=== PATIENT | female | born 1990 | race Caucasian/White ===

== ENCOUNTER 2017-12-05 15:02 | Emergency (ER) | payer BC ==
[2012-07-25 09:15] VITALS: BMI 20.8
== END 2017-12-05 15:34 | disposition left against medical advice (07) ==
LOC: D.ER 15:02
DX: R07.81 Pleurodynia (principal)

== ENCOUNTER 2017-12-06 12:33 | Emergency (ER) | payer SELFPAY ==
[2012-07-25 09:15] VITALS: BMI 20.8
[2017-12-06 14:38] LABS: HCG URINE NEGATIVE (NEGATIVE)
[2017-12-06 15:11] LABS: APPEARANCE CLEAR (CLEAR); BILIRUBIN NEGATIVE (NEGATIVE); COLOR YELLOW (YELLOW); GLUCOSE NEGATIVE (NEGATIVE); KETONE NEGATIVE (NEGATIVE); NITRITE NEGATIVE (NEGATIVE); PROTEIN TRACE mg/dL (NEGATIVE); UROBILINOGEN NORMAL (NORMAL)
[2017-12-06 15:13] LABS: BACTERIA MANY /hpf (NONE SEEN); EPITHELIAL CELLS 0-5 /hpf (0-5); RED CELLS - URINE 0-5 /hpf (0-5)
== END 2017-12-06 18:28 | disposition home or self-care (01) ==
LOC: D.ER 12:33
PROVIDERS: Emergency Medicine; Nurse Practitioner Family
DX: N10 Acute pyelonephritis (principal)

== ENCOUNTER 2018-06-08 22:13 | Emergency (ER) | payer SELFPAY ==
[~2018-06-08] VITALS: Ht 172.7 cm; Wt 72.7 kg
[2018-06-08 22:47] VITALS: BP 136/79; Ht 172.7 cm; Wt 72.7 kg
[2018-06-08 23:20] LABS: BASOPHILS 0.5 % (0-2); EOSINOPHILS 2.5 % (0-7); HEMATOCRIT 39.9 % (36.0-48.0); HEMOGLOBIN 13.5 g/dL (12-16); IMMATURE GRANULOCYTES 0.2 % (0-5); LYMPHOCYTES 25.2 % (15-50); MCH 28.9 pg (26.0-34.0); MCHC 33.8 g/dL (31.0-37.0); MCV 85.4 fL (80.0-100.0); MEAN PLATELET VOLUME 9.2 fL (7.4-10.4); MONOCYTES 5.7 % (2-11); NEUTROPHILS 65.9 % (40-80); RBC 4.67 10x6/uL (4.00-5.40); RDW 13.6 % (11.5-14.5); WBC 10.2 10x3/uL (4.8-10.8)
[2018-06-08 23:25] LABS: HCG SERUM NEGATIVE (NEGATIVE); PLATELET COUNT 317 10x3/uL (130-400)
[2018-06-08 23:43] LABS: ALBUMIN 3.7 g/dL (3.4-5.0); ALKALINE PHOSPHATASE 64 U/L (46-116); ALT (SGPT) 13 U/L (10-68); AMYLASE - SERUM 85 U/L (25-115); BILIRUBIN - TOTAL 0.32 mg/dL (0.2-1.3); CALC OSMOLALITY 260 mosm/kg (275-300); CALCIUM 8.8 mg/dL (8.5-10.1); CHLORIDE - SERUM 103 mmol/L (98-107); CREATININE - SERUM 0.6 mg/dL (0.6-1.3); GLUCOSE 86 mg/dL (74-106); LIPASE 234 U/L (73-393); POTASSIUM - SERUM 4.1 mmol/L (3.5-5.1); PROTEIN - SERUM 7.9 g/dL (6.4-8.2); SODIUM 131 mmol/L (136-145); UREA NITROGEN 9 mg/dL (7-18); eGFR NON AFRICAN AMERICAN > 90 mL/min (90-120)
== END 2018-06-09 00:42 | disposition left against medical advice (07) ==
LOC: D.ER 22:13
PROVIDERS: Family Medicine
DX: R10.9 Unspecified abdominal pain (principal)

== ENCOUNTER 2018-10-06 05:35 | Emergency (ER) | payer SELFPAY ==
[~2018-10-06] VITALS: Ht 172.7 cm; Wt 70.5 kg
[2018-10-06 05:47] VITALS: Ht 172.7 cm; Wt 70.5 kg
[2018-10-06] MEDS ORDERED: ZOFRAN ODT4 MG/UDTAB PO (06:02)
[2018-10-06] MEDS ORDERED: TAMIFLU75 MG PO (06:02)
[2018-10-06 06:35] VITALS: BP 121/70
== END 2018-10-06 06:36 | disposition home or self-care (01) ==
LOC: D.ER 05:35
DX: J02.9 Acute pharyngitis, unspecified (principal); R50.9 Fever, unspecified

== ENCOUNTER 2019-07-09 19:54 | Emergency (ER) | payer MEDICAID ==
[~2019-07-09] VITALS: Ht 172.7 cm; Wt 68.2 kg
[~2019-07-09 19:54] MED LIST: TAMIFLU75 MG PO; TORADOL10 MG PO; ZOFRAN ODT4 MG/UDTAB PO; ZOFRAN8 MG PO
[2019-07-09 20:03] VITALS: Ht 172.7 cm; Wt 68.2 kg
[2019-07-09 21:05] LABS: APPEARANCE TURBID (CLEAR); COLOR YELLOW (YELLOW)
[2019-07-09 21:06] LABS: BILIRUBIN NEGATIVE (NEGATIVE); GLUCOSE NEGATIVE (NEGATIVE); KETONE NEGATIVE (NEGATIVE); NITRITE NEGATIVE (NEGATIVE); PROTEIN NEGATIVE (NEGATIVE); UROBILINOGEN NORMAL (NORMAL)
[2019-07-09 21:07] LABS: BACTERIA MODERATE /hpf (NONE SEEN); MUCUS <1+ /lpf (NONE SEEN); WHITE CELLS - URINE 0-5 /hpf (0-5)
[2019-07-09 21:15] LABS: BASOPHILS 2.8 % (0-2); EOSINOPHILS 1.7 % (0-7); HEMATOCRIT 38.1 % (36.0-48.0); HEMOGLOBIN 12.8 g/dL (12-16); IMMATURE GRANULOCYTES 0.1 % (0-5); LYMPHOCYTES 37.2 % (15-50); MCH 28.8 pg (26.0-34.0); MCHC 33.6 g/dL (31.0-37.0); MCV 85.8 fL (80.0-100.0); MONOCYTES 7.7 % (2-11); NEUTROPHILS 50.5 % (40-80); PLATELET COUNT 291 10x3/uL (130-400); RBC 4.44 10x6/uL (4.00-5.40); RDW 12.7 % (11.5-14.5); WBC 6.9 10x3/uL (4.8-10.8)
[2019-07-09 21:25] LABS: HCG SERUM NEGATIVE (NEGATIVE)
[2019-07-09 21:31] LABS: ALBUMIN 3.4 g/dL (3.4-5.0); ALKALINE PHOSPHATASE 68 U/L (46-116); ALT (SGPT) 14 U/L (10-68); AMYLASE - SERUM 90 U/L (25-115); BILIRUBIN - TOTAL 0.36 mg/dL (0.2-1.3); CALC OSMOLALITY 280 mosm/kg (275-300); CALCIUM 8.5 mg/dL (8.5-10.1); CARBON DIOXIDE 28.3 mmol/L (21.0-32.0); CHLORIDE - SERUM 104 mmol/L (98-107); CREATININE - SERUM 0.8 mg/dL (0.6-1.3); GLUCOSE 83 mg/dL (74-106); LIPASE 419 U/L (73-393); POTASSIUM - SERUM 3.9 mmol/L (3.5-5.1); PROTEIN - SERUM 7.6 g/dL (6.4-8.2); SODIUM 141 mmol/L (136-145); UREA NITROGEN 15 mg/dL (7-18); eGFR NON AFRICAN AMERICAN > 90 mL/min (90-120)
[2019-07-10 00:50] VITALS: BP 124/72
== END 2019-07-10 00:50 | disposition home or self-care (01) ==
LOC: D.ER 19:54
PROVIDERS: Family Medicine
DX: R10.12 Left upper quadrant pain (principal); R10.11 Right upper quadrant pain

== ENCOUNTER 2021-01-25 15:01 | Emergency (ER) | payer MEDICAID ==
[~2021-01-25] VITALS: Ht 172.7 cm; Wt 84.7 kg
[2021-01-25 15:26] VITALS: Ht 172.7 cm; Wt 84.7 kg
[2021-01-25] MEDS ORDERED: NAPROSYN500 MG PO (15:44)
[2021-01-25] MEDS ORDERED: VIBRAMYCIN 100100 MG PO (15:44)
[2021-01-25 16:21] VITALS: BP 106/61
== END 2021-01-25 16:26 | disposition home or self-care (01) ==
LOC: D.ER 15:01
DX: L03.115 Cellulitis of right lower limb (principal)